=== PATIENT | female | born 1935 | race Caucasian/White ===

== ENCOUNTER 2020-01-09 10:02 | Outpatient (CLI) | payer MEDICARE, SELFPAY ==
[2020-01-09 10:32] LABS: Hematocrit 39.6 % (37.0-47.0); Hemoglobin 13.7 g/dL (12.0-15.0); Mean Corpuscular HGB Conc 34.6 g/dl (32-36); Mean Corpuscular Hemoglobin 30.8 pg (26-34); Mean Platelet Volume 10.1 fl (7.4-10.4); Platelet Count Result 218 k/mm3 (150-375); Red Blood Count 4.45 M/mm3 (4.2-5.4); Red Cell Distribution Width 12.6 % (11.5-14.5); White Blood Count 6.3 K/mm3 (4.5-10.0)
[2020-01-09 11:01] LABS: Alanine Aminotransferase 24 U/L (4-35); Albumin Level 4.4 g/dL (3.5-5.1); Alkaline Phosphatase 81 U/L (38-126); Aspartate Amino Transferase 36 U/L (14-36); Bilirubin,Total 0.6 mg/dL (0.2-1.3); Blood Urea Nitrogen 15 mg/dL (7-17); Calcium 9.4 mg/dL (8.4-10.2); Carbon Dioxide 31 mmol/L (22-30); Chloride 100 mmol/L (98-107); Cholesterol 183 mg/dL (0-200); Estimated Glomerular Filt Rate > 60; Glucose 100 mg/dL (65-105); HDL Direct 60 mg/dL; LDL Cholesterol Direct 82 mg/dL; Potassium 4.2 mmol/L (3.4-5.0); Sodium 136 mmol/L (137-145); Triglycerides 173 mg/dL (<150)
== END 2020-01-09 10:03 | disposition home or self-care (01) ==
PROVIDERS: PCP Family Medicine; Visit Provider Nurse Practitioner Family
DX: I10 Essential (primary) hypertension (principal); F41.9 Anxiety disorder, unspecified; Z13.29 Encounter for screening for other suspected endocrine disorder
CPT/HCPCS: 36415; 80053; 80061; 84443; 85027

== ENCOUNTER 2020-01-22 00:21 | Outpatient (CLI) | payer MEDICARE, SELFPAY ==
[2020-01-22 18:39] LABS: SARS-CoV-2 RNA PCR Negative
== END 2020-01-22 00:22 | disposition home or self-care (01) ==
LOC: ANHCOVIDDT 00:22
PROVIDERS: PCP Family Medicine; Visit Provider Internal Medicine Gastroenterology
DX: Z01.818 Encounter for other preprocedural examination (principal); Z11.59 Encounter for screening for other viral diseases
CPT/HCPCS: 87635; C9803; U0003

== ENCOUNTER 2020-01-24 00:40 | Day surgery (SDC) | payer MEDICARE, SELFPAY ==
[2020-01-17 14:25] VITALS: BMI 26.2
[2020-01-24 09:55] VITALS: BP 149/85; PULSE 78; RESP 16; TEMP 36.5; O2SAT 99
[2020-01-24] MEDS: LACTATED RINGERS 1,000 ML 150 ML IV CONT (10:05)
--- NOTE | 2020-01-24 10:20 | P.PNAN_ITS ---
Anes - Initial Pre Proc Eval Procedure: Operation Date: 01/24/20 10:00 Proposed Procedures p Colonoscopy - Guanakito Benites DO Date/Time: 01/24/20 10:20 Surgeon: Guanakito Benites DO Pre Op Diagnosis: Ulcerative Colitis Patient Data Age: 84 Gender: F Height: 5 ft 4.5 in Weight: 68.5 kg Last Vital Signs Temp 97.7 F 01/24/20 09:55 Pulse 78 01/24/20 09:55 Resp 16 01/24/20 09:55 BP 149/85 H 01/24/20 09:55 Pulse Ox 99 01/24/20 09:55 Allergies Allergy/AdvReac Type Severity Reaction Status Date / Time clindamycin Allergy Unknown Unknown Verified 01/24/20 09:54 hydrochlorothiazide Allergy Unknown Unknown Verified 01/24/20 09:54 lisinopril Allergy Unknown Unknown Verified 01/24/20 09:54 Penicillins Allergy Unknown Unknown Verified 01/24/20 09:54 Sulfa (Sulfonamide Allergy Unknown Unknown Verified 01/24/20 09:54 Antibiotics) Home Medications Medication Instructions Recorded Confirmed Type furosemide 20 mg tablet 10 mg PO QAM tablet 07/30/19 01/24/20 History mesalamine 800 mg tablet,delayed 1,600 mg PO TID 07/30/19 01/24/20 History release metoprolol succinate 100 mg 100 mg PO DAILY 07/30/19 01/24/20 History tablet,extended release 24 hr omeprazole 40 mg capsule,delayed 40 mg PO DAILY 07/30/19 01/24/20 History release vedolizumab 300 mg intravenous 300 mg IVPB ONCE 07/30/19 01/24/20 History solution atorvastatin 20 mg tablet 20 mg PO DAILY #90 tablet 10/15/19 01/24/20 Rx alprazolam 0.25 mg tablet 0.25 mg PO BID PRN #60 tablet 01/03/20 01/24/20 Rx losartan 100 mg tablet 100 mg PO DAILY #90 tablet 01/07/20 01/24/20 Rx Culturelle 1 cap PO DAILY 01/17/20 01/24/20 History PNV,calcium 57-pcsy-arfoz acid 1 tablet PO DAILY 01/17/20 01/24/20 History [ Vitamin Plus Low Iron] loperamide [Imodium A-D] 2 mg PO Q4H PRN 01/17/20 01/24/20 History simethicone [Gas Relief Extra 125 mg PO DAILY PRN 01/17/20 01/24/20 History Strength] blood sugar diagnostic #10 each 01/23/20 01/24/20 Rx lancets #50 each 01/23/20 01/24/20 Rx Patient hx anesthesia problems: none Family hx anesthesia problems: none [facility], [facility] Past Medical History Medical History (Updated 01/24/20 @ 10:20 by Gurinder Pascual MD) Hyperlipidemia Hypertension Social History Social History Smoking status: Former smoker Smoking end date: 08/22/71 Alcohol intake: current Anes - Eval Final PreProcedure Day of Procedure 01/24/20 10:20 Patient weight: normal Heart: regular rate and rhythm Lungs: clear to auscultation Airway: Mallampati scale class II Neurological: alert and oriented Last oral intake: >/= 8 hours ASA classification: II Emergent: no Anesthetic plan: proceed Anesthesia type and monitoring: general and standard monitoring Informed Consent: The patient's anesthetic plan and its attendant risks and benefits were discussed with the patient/family/POA. Questions were solicited and answers provided to the satisfaction of the patient/family/POA.
--- NOTE | 2020-01-24 10:42 | PM.IMHP ---
H&P: HPI History of Present Illness Chief complaint: Ulcerative Colitis Narrative: Reason for visit colonoscopy. Impression: Your very pleasant lady with a history of ulcerative colitis. She is here for screening and surveillance. Previously she has had evidence of indeterminate / low-grade dysplasia. HTN. Diabetes mellitus. HLD. GERD. Osteoarthritis. Recommendation: Colonoscopy. History: This very pleasant lady has a history ulcerative colitis. Previously she has had active inflammation indeterminate for dysplasia. She did have episodes of low-grade dysplasia in the past. She is here for follow-up colonoscopy for surveillance. She does have a history of occasional diarrhea. This controlled with Imodium. 14 point review systems negative except for that mentioned above. General: very pleasant patient in no acute distress. HEENT: Head was normocephalic sclerae is clear mouth without masses neck was supple. Heart: Rate rhythm regular without S3 or S4. Lungs: CTA. Abdomen: Soft with no guarding or rigidity. Bowel sounds were active. Neurologic: Cranial nerves 2 through 12 intact. No focal defects. No clonus. Musculoskeletal system: Revealed no joint tenderness or swelling no muscle atrophy. Extremities: Reveal no significant edema. Skin: Warm and dry with normal turgor. Mental status: intact. Patient is alert and oriented. Patient has had multiple surgeries. REPLACED BY [facility] Past Medical History Medical History (Updated 01/24/20 @ 10:42 by Guanakito Benites DO) Diabetes DJD (degenerative joint disease) GERD (gastroesophageal reflux disease) Hyperlipidemia Hypertension Ulcerative colitis Surgical History Surgical History (Updated 01/24/20 @ 10:42 by Guanakito Benites DO) H/O colonoscopy Social History Social History Smoking status: Former smoker Smoking end date: 08/22/71 Alcohol intake: current Meds Home Medications and Allergies Home Medications Medication Instructions Recorded Confirmed Type furosemide 20 mg tablet 10 mg PO QAM tablet 07/30/19 01/24/20 History mesalamine 800 mg tablet,delayed 1,600 mg PO TID 07/30/19 01/24/20 History release metoprolol succinate 100 mg 100 mg PO DAILY 07/30/19 01/24/20 History tablet,extended release 24 hr omeprazole 40 mg capsule,delayed 40 mg PO DAILY 07/30/19 01/24/20 History release vedolizumab 300 mg intravenous 300 mg IVPB ONCE 07/30/19 01/24/20 History solution atorvastatin 20 mg tablet 20 mg PO DAILY #90 tablet 10/15/19 01/24/20 Rx alprazolam 0.25 mg tablet 0.25 mg PO BID PRN #60 tablet 01/03/20 01/24/20 Rx losartan 100 mg tablet 100 mg PO DAILY #90 tablet 01/07/20 01/24/20 Rx Culturelle 1 cap PO DAILY 01/17/20 01/24/20 History PNV,calcium 24-uiub-tcmyt acid 1 tablet PO DAILY 01/17/20 01/24/20 History [ Vitamin Plus Low Iron] loperamide [Imodium A-D] 2 mg PO Q4H PRN 01/17/20 01/24/20 History simethicone [Gas Relief Extra 125 mg PO DAILY PRN 01/17/20 01/24/20 History Strength] blood sugar diagnostic #10 each 01/23/20 01/24/20 Rx lancets #50 each 01/23/20 01/24/20 Rx Allergies Allergy/AdvReac Type Severity Reaction Status Date / Time clindamycin Allergy Unknown Unknown Verified 01/24/20 09:54 hydrochlorothiazide Allergy Unknown Unknown Verified 01/24/20 09:54 lisinopril Allergy Unknown Unknown Verified 01/24/20 09:54 Penicillins Allergy Unknown Unknown Verified 01/24/20 09:54 Sulfa (Sulfonamide Allergy Unknown Unknown Verified 01/24/20 09:54 Antibiotics) Vital Signs Vital Signs - 24 hr 01/24/20 09:55 Temperature 36.5 C Pulse Rate 78 Respiratory Rate 16 Blood Pressure 149/85 H Pulse Oximetry 99
[2020-01-24 11:25] VITALS: BP 88/55; PULSE 65; RESP 14; O2SAT 95
[2020-01-24 11:35] VITALS: BP 108/61; PULSE 69; RESP 17; O2SAT 96
[2020-01-24 11:45] VITALS: BP 118/74; PULSE 62; RESP 16; O2SAT 99
== END 2020-01-24 11:55 | disposition home or self-care (01) ==
PROVIDERS: PCP Family Medicine; Visit Provider Internal Medicine Gastroenterology
PROC: 0DJD8ZZ Inspection of Lower Intestinal Tract, Via Natural or Artificial Opening Endoscopic (ICD-10-PCS; CPT 45378; principal; 2020-01-24 10:00)
DX: Z12.11 Encounter for screening for malignant neoplasm of colon (principal); K51.90 Ulcerative colitis, unspecified, without complications; I10 Essential (primary) hypertension; E78.5 Hyperlipidemia, unspecified; E11.9 Type 2 diabetes mellitus without complications; K21.9 Gastro-esophageal reflux disease without esophagitis; M19.90 Unspecified osteoarthritis, unspecified site; Z87.891 Personal history of nicotine dependence
CPT/HCPCS: G0105; 87635; 88305; C9803; J2704; J7120; U0003

== ENCOUNTER 2020-01-24 20:47 | Observation (INO) | payer MEDICARE, SELFPAY ==
--- NOTE | ~2020-01-24 | CT_ITS ---
EXAMINATION: CT abdomen pelvis w con DATE: 01/24/2020 22:17 INDICATION: Abdominal pain, nausea and diarrhea post colonoscopy. TECHNIQUE: Computed tomography (CT) of the abdomen and pelvis was performed with 100 mL Omnipaque-350 intravenous contrast. Automated exposure control and iterative reconstruction technique were employe d. The dose-length product was 419.04 mGy-cm. COMPARISON: None FINDINGS: Small fat-containing Bochdalek hernia at the posterior medial right hemithorax. Mild dependent atelec tasis in the bilateral lower lobes. Heart size is normal. Atherosclerotic coronary artery Calcination . No pericardial or pleural effusion. Moderate-sized sliding-type hiatal hernia. There are few low-at tenuation cysts in the left and right hepatic lobes. Mild intra and extra hepatic biliary ductal dila tion likely related to prior cholecystectomy with no visualized gallbladder. Spleen, pancreas, bilate ral adrenal glands are normal. 1.5 cm cyst at the lower pole of the left kidney. Small region of lex ical scarring at the lower pole of the right kidney. Colonic wall thickening, severe in the transvers e colon and decreasing severity in the descending and sigmoid colon consistent with colitis. No bowel obstruction. Normal appendix. Bladder is normal. The uterus is not identified and has likely been nash rgically resected. Moderate-sized fat-containing umbilical hernia. No free intraperitoneal gas or flu id. No pathologically enlarged abdominal or pelvic lymphadenopathy. There is calcified atherosclerosi s of the aorta and many of the other arteries. Severe lumbar spondylosis. IMPRESSION: 1. Chronic wall thickening in the mid to distal colon most severe at the transverse colon consistent with provided history of ulcerative colitis. 2. Moderate-sized hiatal hernia. 3. Moderate-sized fat-containing umbilical hernia. Reviewed, dictated and finalized at location A. IMPRESSION: 1. Chronic wall thickening in the mid to distal colon most severe at the transv erse colon consistent with provided history of ulcerative colitis. 2. Moderate-sized hiatal hernia. 3. Moderate-sized fat-containing umbilical hernia.
--- NOTE | ~2020-01-24 | XR_ITS ---
EXAMINATION: XR chest 1V portable DATE: 01/24/2020 21:38 INDICATION: Fever and loose stools. TECHNIQUE: frontal view of the chest was obtained. COMPARISON: Chest radiograph dated 01/12/2019 FINDINGS: The lungs remain clear with no focal airspace opacities, pulmonary edema, pleural effusion or pneumot horax. Air-fluid level within a moderate-sized hiatal hernia. Arch size is normal. Bilateral distal c lavicle resections and acromioplasties. Multiple suture anchors at the right humeral head likely rela jamey to prior rotator cuff repair. IMPRESSION: 1. No acute cardiopulmonary disease. 2. Moderate sized hiatal hernia. Reviewed, dictated and finalized at location A.
[2020-01-24 20:49] VITALS: BP 193/94; PULSE 120; RESP 18; TEMP 39.1; O2SAT 100
--- NOTE | 2020-01-24 21:01 | ECG_ITS ---
Measurements Intervals [place] Rate: 109 P: 21 OK: 164 QRS: -30 QRSD: 84 T: 31 QT: 311 QTc: 420 Interpretive Statements SINUS TACHYCARDIA POSSIBLE LEFT ATRIAL ENLARGEMENT INCOMPLETE RIGHT BUNDLE BRANCH BLOCK DELAYED PRECORDIAL R/S TRANSITION BASELINE ARTIFACT- I, III, AVR, AVL ABNORMAL ECG Electronically Signed On 01-25-2020 7:03:14 CDT by Rubens Arriaga D.O.
--- NOTE | 2020-01-24 21:17 | ED.FEVER ---
HPI - Fever General Chief Complaint: Fever Stated Complaint: fever, nausea, diarrhea Time Seen by Provider: 01/24/20 20:48 Source: RN notes reviewed History of Present Illness HPI Narrative: Patient presents emergency department from home for fever. Patient states she had a colonoscopy this morning by Dr. Sigala. States she had returned home and began to feel generalized malaise. She states she had noted increased thirst as well as a fever and diarrhea. Patient states she has mild abdominal achiness she denies any chest pain shortness of breath cough or any other symptoms at this time states she is taken no Tylenol at home Related Data Home Medications Medication Instructions Recorded Confirmed furosemide 20 mg tablet 10 mg PO QAM tablet 07/30/19 01/24/20 mesalamine 800 mg tablet,delayed 1,600 mg PO TID 07/30/19 01/24/20 release metoprolol succinate 100 mg 100 mg PO DAILY 07/30/19 01/24/20 tablet,extended release 24 hr omeprazole 40 mg capsule,delayed 40 mg PO DAILY 07/30/19 01/24/20 release vedolizumab 300 mg intravenous 300 mg IVPB ONCE 07/30/19 01/24/20 solution Culturelle 1 cap PO DAILY 01/17/20 01/24/20 PNV,calcium 89-cohh-grlja acid 1 tablet PO DAILY 01/17/20 01/24/20 [ Vitamin Plus Low Iron] loperamide [Imodium A-D] 2 mg PO Q4H PRN 01/17/20 01/24/20 simethicone [Gas Relief Extra 125 mg PO DAILY PRN 01/17/20 01/24/20 Strength] Allergies Allergy/AdvReac Type Severity Reaction Status Date / Time clindamycin Allergy Unknown Unknown Verified 01/24/20 09:54 hydrochlorothiazide Allergy Unknown Unknown Verified 01/24/20 09:54 lisinopril Allergy Unknown Unknown Verified 01/24/20 09:54 Penicillins Allergy Unknown Unknown Verified 01/24/20 09:54 Sulfa (Sulfonamide Allergy Unknown Unknown Verified 01/24/20 09:54 Antibiotics) Review of Systems Review of Systems: Narrative: Gen.: Reports fever Eyes: Denies eye pain or visual change ENT: Denies congestion Respiratory: Denies shortness of breath or cough CV: Denies chest pain or palpitations GI: Reports mild abdominal pain denies vomiting reports diarrhea denies burning, urgency, frequency or hematuria Musculoskeletal: Denies back pain or muscle pain Neuro: Denies numbness, tingling, weakness or focal weakness Skin: Denies rash Except as documented, all other systems reviewed and negative [facility] Past Medical History Medical History Diabetes DJD (degenerative joint disease) GERD (gastroesophageal reflux disease) Hyperlipidemia Hypertension Ulcerative colitis Surgical History Surgical History H/O colonoscopy Family History Family History Sibling Hypertension Family history of elevated blood lipids Family history of diabetes mellitus in first degree relative Mother Family history of Alzheimer's disease Father Family history of heart disease in male family member before age 55 Acute myocardial infarction Other Diabetes mellitus Family history of cardiovascular disease Family history of cataracts Family history of coronary artery disease Family history of glaucoma Family history of osteoarthritis Social History Social History Smoking status: Former smoker Smoking end date: 08/22/71 Alcohol intake: current Gender identity (if verbalized by the patient): Female Exam Narrative: Exam Narrative: APPEARANCE: No acute distress, nontoxic, resting in bed EYES: EOMI HEENT: Normocephalic, atraumatic, OMM RESPIRATORY: No respiratory distress Clear to auscultation bilaterally with no rhonchi wheezing or rales. CARDIOVASCULAR: Regular rate and rhythm without murmurs rubs or gallops. ABDOMINAL: Soft, nondistended, mild diffuse tenderness palpation no rebound or guarding MUSCULOSKELETAl: Moves all extremities. No
[2020-01-24] MEDS: SODIUM CHLORIDE 0.9% IV 1,000 ML 999 ML IV CONT ×2 (21:21→21:38)
[2020-01-24 21:22] LABS: Basophils Percent Auto 0.2 % (0.2-1.2); Eosinophils Percent Auto 0.1 % (0-4.4); Hematocrit 46.4 % (37.0-47.0); Hemoglobin 16.3 g/dL (12.0-15.0); Immature Granulocyte Absolute 0.08 K/mm3 (0.00-0.031); Immature Granulocyte Percent A 0.5 % (0-0.5); Lymphocytes Absolute Auto 1.73 K/mm3 (0.9-3.2); Lymphocytes Percent Auto 9.8 % (18.3-44.2); Mean Corpuscular HGB Conc 35.1 g/dl (32-36); Mean Corpuscular Hemoglobin 31.3 pg (26-34); Mean Corpuscular Volume 89.1 fl (80-100); Mean Platelet Volume 10.6 fl (7.4-10.4); Monocytes Percent Auto 5.4 % (2.6-8.5); Neutrophils Absolute Auto 14.8 K/mm3 (1.3-6.7); Platelet Count Result 289 k/mm3 (150-375); Red Blood Count 5.21 M/mm3 (4.2-5.4); Red Cell Distribution Width 12.7 % (11.5-14.5); White Blood Count 17.7 K/mm3 (4.5-10.0)
[2020-01-24 21:28] VITALS: BP 179/96; PULSE 92; RESP 14; O2SAT 100
[2020-01-24 21:33] LABS: Lactic Acid Reflex 2.8 mmol/L (0.7-2.1)
[2020-01-24 21:34] LABS: Alanine Aminotransferase 27 U/L (4-35); Albumin Level 5.1 g/dL (3.5-5.1); Alkaline Phosphatase 108 U/L (38-126); Aspartate Amino Transferase 45 U/L (14-36); Bilirubin,Total 0.7 mg/dL (0.2-1.3); Blood Urea Nitrogen 17 mg/dL (7-17); Calcium 10.1 mg/dL (8.4-10.2); Carbon Dioxide 27 mmol/L (22-30); Chloride 98 mmol/L (98-107); Estimated Glomerular Filt Rate 53; Glucose 126 mg/dL (65-105); Potassium 3.8 mmol/L (3.4-5.0); Sodium 137 mmol/L (137-145)
[2020-01-24 21:35] LABS: INR 1.1; Prothrombin Time 13.5 Seconds (11.1-14.7)
[2020-01-24 21:37] LABS: Partial Thromboplastin Time 35.5 SECONDS (22.3-36.8)
[2020-01-24 21:50] VITALS: TEMP 37.7
[2020-01-24 22:41] LABS: Add Urine Microscopic? YES; Appearance Urine Clear (Clear); Bilirubin Urine Negative (Negative); Blood Urine 1+ (Negative); Color Urine Straw (Yellow); Glucose Urine UA Negative (Negative); Ketones Urine Negative (Negative); Leukocyte Esterase Ur Trace LEU/UL (Negative); Mucus Urine Rare /lpf; Nitrate Urine Negative (Negative); Protein Urine Negative (Negative); RBC Urine 0-2 /hpf (0-2); Specific Grav Ur 1.015 (1.001-1.035); Squamous Epithelial Cell Urine Rare /hpf (Few); Urobilinogen Urine Negative mg/dL (<2.0)
[2020-01-24 22:42] VITALS: BP 152/85; PULSE 92; RESP 19; TEMP 37.7; O2SAT 100
[2020-01-24 23:30] VITALS: BP 137/71; PULSE 88; RESP 16; O2SAT 100
[2020-01-24] MEDS: metroNIDAZOLE 500 MG/ISO 100ML 500 MG/100 ML BAG 100 MG IVPB (23:40)
--- NOTE | 2020-01-25 00:17 | PM.IMHP ---
H&P: HPI History of Present Illness Chief complaint: Postoperative fever, sepsis Narrative: This is a pleasant 84 year old female with known history of ulcerative colitis who just underwent a colonoscopy by Dr. Benites today and returned to the hospital with a complaint of fever and diarrhea. The patient describes having several loose mushy stools at home but denies any jordan red rectal bleeding. She also denies any significant abdominal pain or abdominal distention. She relates that she has had various colonoscopies and this is the first time that she has had these symptoms afterwards. She denies any nausea, vomiting, coughing, shortness of breath, sore throat, chest pain, headache, dysuria, hematuria, or other symptoms. The patient was recently tested for COVID-19 three days ago and was negative. She denies any sick contacts. The patient was evaluated in the ER tonight and found to be septic with fever, tachycardia and an elevated WBC. CT abd/pelvis was unremarkable for acute pathology and did not demonstrate any perforation. Dr. Benites has been consulted by ER provider and has asked that the patient be started on IV Zosyn and admitted to our hospitalist service for further care. No other complaints. Review of Systems Review of Systems: All systems reviewed & are unremarkable except as noted in HPI and below PMFSH Past Medical History Medical History Abdominal pain Diabetes DJD (degenerative joint disease) GERD (gastroesophageal reflux disease) Hyperlipidemia Hypertension Ulcerative colitis Surgical History Surgical History H/O colonoscopy Family History Family History Sibling Hypertension Family history of elevated blood lipids Family history of diabetes mellitus in first degree relative Mother Family history of Alzheimer's disease Father Family history of heart disease in male family member before age 55 Acute myocardial infarction Other Diabetes mellitus Family history of cardiovascular disease Family history of cataracts Family history of coronary artery disease Family history of glaucoma Family history of osteoarthritis Social History Social History Smoking status: Former smoker Tobacco type: cigarettes Smoking end date: 08/22/71 Alcohol intake: current Drinks per week: 1 Substance use: never Substance use type: does not use Gender identity (if verbalized by the patient): Female Spiritual care concerns: No Meds Home Medications and Allergies Home Medications Medication Instructions Recorded Confirmed Type furosemide 20 mg tablet 10 mg PO QAM tablet 07/30/19 01/25/20 History mesalamine 800 mg tablet,delayed 1,600 mg PO TID 07/30/19 01/25/20 History release metoprolol succinate 100 mg 100 mg PO HS 07/30/19 01/25/20 History tablet,extended release 24 hr omeprazole 40 mg capsule,delayed 40 mg PO DAILY 07/30/19 01/25/20 History release vedolizumab 300 mg intravenous 300 mg IVPB ONCE 07/30/19 01/25/20 History solution atorvastatin 20 mg tablet 20 mg PO DAILY #90 tablet 10/15/19 01/25/20 Rx alprazolam 0.25 mg tablet 0.25 mg PO BID PRN #60 tablet 01/03/20 01/25/20 Rx losartan 100 mg tablet 100 mg PO DAILY #90 tablet 01/07/20 01/25/20 Rx Culturelle 1 cap PO DAILY 01/17/20 01/25/20 History Vitamin Plus Low Iron 1 tablet PO DAILY 01/17/20 01/25/20 History loperamide [Imodium A-D] 2 mg PO Q4H PRN 01/17/20 01/25/20 History simethicone [Gas Relief Extra 125 mg PO DAILY PRN 01/17/20 01/25/20 History Strength] blood sugar diagnostic #10 each 01/23/20 01/25/20 Rx lancets #50 each 01/23/20 01/25/20 Rx Benefiber Clear SF (dextrin) 2 tbsp PO QAM 01/25/20 01/25/20 History levofloxacin [Levaquin] 750 mg PO Q48H #3 tablet 01/26/20 Rx metronidazole [Fl
[2020-01-25 00:20] LABS: Reflex Lactic Acid Yes or No Add Lactic
[2020-01-25 00:31] VITALS: BP 139/81; PULSE 86; RESP 19; TEMP 37.2; O2SAT 98
[2020-01-25 00:41] VITALS: BP 139/81; PULSE 86; RESP 19; TEMP 37.6; O2SAT 98
[2020-01-25 00:43] LABS: Lactic Acid 0.8 mmol/L (0.7-2.1)
--- NOTE | 2020-01-25 00:58 | ADMGEN ---
This patient, Ivanna Mcfarland, was admitted to Medical Room 244-. Patient/family oriented to hospital policies and general routines including ID bracelet, bed and alarms, visiting hours, pain management, procedures, bathroom and other care routines, personal items, smoking policy, room service/diet, and visiting hours. Valuables list has been completed. Information on how to activate the Rapid Response Team has been discussed. Patient/Family are encouraged to report perceived risks to care and to ask questions if they do not understand what they are told or what they should do.
[2020-01-25 01:20] VITALS: BP 165/84; PULSE 87; RESP 16; TEMP 37; O2SAT 100; BMI 26.5
[2020-01-25] MEDS: SODIUM CHLORIDE 0.9% IV 1,000 ML 125 ML IV CONT ×2 (01:45→11:51)
[2020-01-25] MEDS: LORAZEPAM INJ 2 MG/ML VIAL 0.5 MG IV PUSH (03:29)
[2020-01-25 05:09] LABS: Basophils Percent Auto 0.2 % (0.2-1.2); Eosinophils Percent Auto 0.1 % (0-4.4); Hematocrit 36.5 % (37.0-47.0); Hemoglobin 12.7 g/dL (12.0-15.0); Immature Granulocyte Absolute 0.09 K/mm3 (0.00-0.031); Immature Granulocyte Percent A 0.6 % (0-0.5); Lymphocytes Absolute Auto 1.53 K/mm3 (0.9-3.2); Lymphocytes Percent Auto 10.2 % (18.3-44.2); Mean Corpuscular HGB Conc 34.8 g/dl (32-36); Mean Corpuscular Hemoglobin 31.1 pg (26-34); Mean Corpuscular Volume 89.2 fl (80-100); Mean Platelet Volume 10.5 fl (7.4-10.4); Monocytes Absolute Auto 0.8 K/mm3 (0.1-0.6); Monocytes Percent Auto 5.4 % (2.6-8.5); Neutrophils Absolute Auto 12.6 K/mm3 (1.3-6.7); Neutrophils Percent Auto 83.5 % (45.5-73.1); Platelet Count Result 191 k/mm3 (150-375); Red Blood Count 4.09 M/mm3 (4.2-5.4); Red Cell Distribution Width 12.9 % (11.5-14.5)
[2020-01-25 05:34] LABS: Alanine Aminotransferase 19 U/L (4-35); Albumin Level 3.5 g/dL (3.5-5.1); Alkaline Phosphatase 77 U/L (38-126); Aspartate Amino Transferase 31 U/L (14-36); Bilirubin,Total 0.5 mg/dL (0.2-1.3); Blood Urea Nitrogen 11 mg/dL (7-17); Carbon Dioxide 24 mmol/L (22-30); Chloride 106 mmol/L (98-107); Estimated CRCL calculation 42 ml/min; Estimated Glomerular Filt Rate > 60; Glucose 102 mg/dL (65-105); Potassium 3.1 mmol/L (3.4-5.0); Sodium 137 mmol/L (137-145)
[2020-01-25] MEDS: metroNIDAZOLE 500 MG/ISO 100ML 500 MG/100 ML BAG 100 MG IVPB ×4 (05:50→23:21)
[2020-01-25 05:53] VITALS: BP 131/70; PULSE 79; RESP 16; TEMP 36.8; O2SAT 99
[2020-01-25 06:05] LABS: Glucose Point of Care 102 (65-105)
[2020-01-25 07:38] LABS: Glucose Point of Care 117 (65-105)
[2020-01-25] MEDS: PANTOPRAZOLE SODIUM IV 40 MG VIAL IV PUSH (08:24)
--- NOTE | 2020-01-25 10:06 | P.PNIM_ITS ---
Progress Note: A&P Assessment and Plan (1) Postoperative fever: Code(s): R50.82 - Postprocedural fever Status: Acute Assessment and Plan: Mild fever of 99.7 overnight; no fevers since. Patient felling well thus far. Levaquin and Flagyl started in ER. Dr. Benites has been consulted from the ER and appreciate recommendations. * Await further rec from Dr. Benites * Continue IV antibiotics for now * Tylenol IV for fevers while on NPO status * monitor (2) Ulcerative colitis: Qualifiers: Ulcerative colitis location: other ulcerative colitis Digestive disease complication type: other complication Qualified Code(s): K51.818 - Other ulcerative colitis with other complication Code(s): K51.90 - Ulcerative colitis, unspecified, without complications Status: Chronic Assessment and Plan: Follows Dr. Benites who has been consulted; Colonoscopy performed yesterday with no evidence of active disease * NPO status for now * Await further rec from Dr. Benites * Continue IV antibiotics * Monitor (3) Sepsis: Qualifiers: Sepsis acute organ dysfunction status: without acute organ dysfunction Sepsis type: sepsis due to unspecified organism Qualified Code(s): A41.9 - Sepsis, unspecified organism Code(s): A41.9 - Sepsis, unspecified organism Status: Acute Assessment and Plan: With fever, tachycardia, leukocytosis, and lactic acidosis (resolved). Possible UC as source, although no active disease shown on colonoscopy. Vitals have improved; leukocytosis improved. * Monitor vitals * Continue IV antibiotics for now * Continue IVF at 75 mL/hr (4) Anxiety: Code(s): F41.9 - Anxiety disorder, unspecified Status: Chronic Assessment and Plan: No acute issues * PRN IV ativan for now (5) Hypertension: Qualifiers: Hypertension type: unspecified Qualified Code(s): I10 - Essential (primary) hypertension Code(s): I10 - Essential (primary) hypertension Status: Chronic Assessment and Plan: BP 130s sys * Resume home antihypertensives when possible. * PRN IV hypertensives as needed. (6) Hyperlipidemia: Qualifiers: Hyperlipidemia type: unspecified Qualified Code(s): E78.5 - Hyperlipidemia, unspecified Code(s): E78.5 - Hyperlipidemia, unspecified Status: Chronic Assessment and Plan: * Resume statin therapy when possible. (7) GERD (gastroesophageal reflux disease): Qualifiers: Esophagitis presence: esophagitis presence not specified Qualified Code(s): K21.9 - Gastro-esophageal reflux disease without esophagitis Code(s): K21.9 - Gastro-esophageal reflux disease without esophagitis Status: Chronic Assessment and Plan: No acute issues * Continue IV PPI therapy. (8) Diabetes: Qualifiers: Diabetes mellitus type: type 2 Diabetes mellitus fci insulin use: without buttermaker continuous churn use Diabetes mellitus complication status: without complication Qualified Code(s): E11.9 - Type 2 diabetes mellitus without complications Code(s): E11.9 - Type 2 diabetes mellitus without complications Status: Chronic Assessment and Plan: BGL low 100s today * Accuchecks, SSI Coverage, Hypoglycemia protocol. * Diabetic diet when
--- NOTE | 2020-01-25 10:06 | PM.IMPN ---
Progress Note: A&P Assessment and Plan (1) Postoperative fever: Code(s): R50.82 - Postprocedural fever Status: Acute Assessment and Plan: Mild fever of 99.7 overnight; no fevers since. Patient felling well thus far. Levaquin and Flagyl started in ER. Dr. Benites has been consulted from the ER and appreciate recommendations. Await further rec from Dr. Benites Continue IV antibiotics for now Tylenol IV for fevers while on NPO status monitor (2) Ulcerative colitis: Qualifiers: Ulcerative colitis location: other ulcerative colitis Digestive disease complication type: other complication Qualified Code(s): K51.818 - Other ulcerative colitis with other complication Code(s): K51.90 - Ulcerative colitis, unspecified, without complications Status: Chronic Assessment and Plan: Follows Dr. Benites who has been consulted; Colonoscopy performed yesterday with no evidence of active disease NPO status for now Await further rec from Dr. Benites Continue IV antibiotics Monitor (3) Sepsis: Qualifiers: Sepsis acute organ dysfunction status: without acute organ dysfunction Sepsis type: sepsis due to unspecified organism Qualified Code(s): A41.9 - Sepsis, unspecified organism Code(s): A41.9 - Sepsis, unspecified organism Status: Acute Assessment and Plan: With fever, tachycardia, leukocytosis, and lactic acidosis (resolved). Possible UC as source, although no active disease shown on colonoscopy. Vitals have improved; leukocytosis improved. Monitor vitals Continue IV antibiotics for now Continue IVF at 75 mL/hr (4) Anxiety: Code(s): F41.9 - Anxiety disorder, unspecified Status: Chronic Assessment and Plan: No acute issues PRN IV ativan for now (5) Hypertension: Qualifiers: Hypertension type: unspecified Qualified Code(s): I10 - Essential (primary) hypertension Code(s): I10 - Essential (primary) hypertension Status: Chronic Assessment and Plan: BP 130s sys Resume home antihypertensives when possible. PRN IV hypertensives as needed. (6) Hyperlipidemia: Qualifiers: Hyperlipidemia type: unspecified Qualified Code(s): E78.5 - Hyperlipidemia, unspecified Code(s): E78.5 - Hyperlipidemia, unspecified Status: Chronic Assessment and Plan: Resume statin therapy when possible. (7) GERD (gastroesophageal reflux disease): Qualifiers: Esophagitis presence: esophagitis presence not specified Qualified Code(s): K21.9 - Gastro-esophageal reflux disease without esophagitis Code(s): K21.9 - Gastro-esophageal reflux disease without esophagitis Status: Chronic Assessment and Plan: No acute issues Continue IV PPI therapy. (8) Diabetes: Qualifiers: Diabetes mellitus type: type 2 Diabetes mellitus fdc insulin use: without ad terminal makeup operator use Diabetes mellitus complication status: without complication Qualified Code(s): E11.9 - Type 2 diabetes mellitus without complications Code(s): E11.9 - Type 2 diabetes mellitus without complications Status: Chronic Assessment and Plan: BGL low 100s today Accuchecks, SSI Coverage, Hypoglycemia protocol. Diabetic diet when off NPO status Subjective Date/time seen: 01/25/20 10:06 Interval history: Patient is a 84 yo F with history of ulcerative colitis who just underwent a colonoscopy by Dr. Benites on 01/23 who is here for evaluation of post op fever and diarrhea. Patient states she is feeling better today; denies subjective fevers or any BMs since admission to the hospital. Her only c
[2020-01-25 11:24] LABS: Glucose Point of Care 124 (65-105)
[2020-01-25] MEDS: PHARMACIST COMMUNICATION ORDER 1 EACH XX (13:09)
--- NOTE | 2020-01-25 13:34 | WPDGICN ---
GI Consult Note Consult date/time: 01/25/20 13:34 Reason for consultation is history of ulcerative colitis and fever post colonoscopy. HPI: This very pleasant lady was seen in consultation at the request of the hospitalist with the patient's permission. The patient was examined and chart review. Here is a very pleasant lady with fever, diarrhea and elevated white count post colonoscopy. At this time at a loss to explain her fever and elevated white count. A little bit of diarrhea post colonoscopy is not unreasonable. History of ulcerative colitis. Colonoscopy 01/24/2020 revealed no active disease. GERD asymptomatic at this time. Diabetes mellitus. HTN. HLD. Degenerative joint disease. Recommendation: Continue Levaquin Flagyl. Will place on clear liquids. Recheck laboratory studies in the morning. If the patient has persistent fever and or elevated white count would consider repeating CT imaging and chest x-ray. History: This very pleasant lady's well known to myself. On 01/24/2020 the patient underwent a screening colonoscopy. Patient has a history of ulcerative colitis. She felt she has been under good control. Colonoscopy was unrewarding. Random biopsies were taken throughout. The patient is discharged home in satisfactory condition. During the evening after eating she developed significant urgency, cramping and diarrhea. She had about 4 5 times. She was feeling weak and presented to the emergency room. Emergency room she was noted to have an elevated temperature in white blood cell count. CT imaging revealed: IMPRESSION: 1. Chronic wall thickening in the mid to distal colon most severe at the transverse colon consistent with provided history of ulcerative colitis. 2. Moderate-sized hiatal hernia. 3. Moderate-sized fat-containing umbilical hernia. The patient was subsequently admitted to the hospital. Patient at this time denies any significant abdominal pain, constipation or diarrhea. She is passing flatus. She denies any hematochezia, melena or acholic stools. Nausea, vomiting, hematemesis, indigestion and heartburn or tonight. Today the white count is down slightly. There is a left shift. She has had no further diarrhea. Unfortunately cultures were not obtained. Fourteen point review of systems negative except for that mentioned above. Physical examination very pleasant lady in no acute distress. General: very pleasant patient in no acute distress. HEENT: Head was normocephalic sclerae is clear mouth without masses neck was supple. Heart: Rate rhythm regular without S3 or S4. Lungs: CTA. Abdomen: Soft with no guarding or rigidity. Bowel sounds were active. Neurologic: Cranial nerves 2 through 12 intact. No focal defects. No clonus. Musculoskeletal system: Revealed no joint tenderness or swelling no muscle atrophy. Extremities: Reveal no significant edema. Skin: Warm and dry with normal turgor. Mental status: intact. Patient is alert and oriented. Review of Systems Review of Systems: All systems reviewed & are unremarkable except as noted in HPI and below PMFSH Past Medical History Medical History Diabetes DJD (degenerative joint disease) GERD (gastroesophageal reflux disease) Hyperlipidemia Hypertension Ulcerative colitis Surgical History Surgical History H/O colonoscopy Family History Family History Sibling Hypertension Family history of elevated blood lipids Family history of diabetes mellitus in first degree relative Mother Family history of Alzheimer's disease Father Family history of heart disease in male family member before age 55 Acute myocardial infarction Other Diabetes mellitus Family history of cardiovascular disease Family history of cataracts Family history of coronary artery disease Family history
[2020-01-25 14:00] VITALS: BP 141/66; PULSE 75; RESP 16; TEMP 37.1; O2SAT 98
[2020-01-25 15:33] LABS: INR 1.2; Prothrombin Time 15.3 Seconds (11.1-14.7)
[2020-01-25 15:41] LABS: Alanine Aminotransferase 21 U/L (4-35); Albumin Level 4.2 g/dL (3.5-5.1); Alkaline Phosphatase 89 U/L (38-126); Aspartate Amino Transferase 33 U/L (14-36); Bilirubin,Total 0.9 mg/dL (0.2-1.3); Blood Urea Nitrogen 8 mg/dL (7-17); CRP 8.9 mg/dL (<1.0); Calcium 8.4 mg/dL (8.4-10.2); Carbon Dioxide 23 mmol/L (22-30); Chloride 104 mmol/L (98-107); Cholesterol 167 mg/dL (0-200); Estimated CRCL calculation 48 ml/min; Estimated Glomerular Filt Rate > 60; Glucose 97 mg/dL (65-105); HDL Direct 64 mg/dL; Potassium 3.4 mmol/L (3.4-5.0); Sodium 136 mmol/L (137-145); Triglycerides 91 mg/dL (<150)
[2020-01-25 15:50] LABS: LDL Cholesterol Direct 71 mg/dL
[2020-01-25 15:55] LABS: T4 Thyroxine 8.97 ug/dL (5.53-11.0)
[2020-01-25 16:23] LABS: Free T4 Free Thyroxine 1.11 ng/mL (0.78-2.19)
[2020-01-25 16:28] LABS: Glucose Point of Care 83 (65-105)
[2020-01-25] MEDS: POTASSIUM CHLORIDE 20 MEQ TABLET PO (17:30)
[2020-01-25] MEDS: SODIUM CHLORIDE 0.9% IV 1,000 ML 75 ML IV CONT (20:07)
[2020-01-25 20:23] LABS: Glucose Point of Care 80 (65-105)
[2020-01-25 22:02] VITALS: BP 139/66; PULSE 78; RESP 18; TEMP 37.7; O2SAT 100
[2020-01-25] MEDS: ALPRAZOLAM 0.25 MG TABLET PO (23:20)
[2020-01-26] MEDS: metroNIDAZOLE 500 MG/ISO 100ML 500 MG/100 ML BAG 100 MG IVPB ×2 (05:16→11:50)
[2020-01-26 05:40] LABS: Basophils Percent Auto 0.3 % (0.2-1.2); Eosinophils Absolute Auto 0.1 K/mm3 (0-0.3); Eosinophils Percent Auto 0.9 % (0-4.4); Hematocrit 34.6 % (37.0-47.0); Immature Granulocyte Absolute 0.03 K/mm3 (0.00-0.031); Immature Granulocyte Percent A 0.3 % (0-0.5); Lymphocytes Absolute Auto 1.69 K/mm3 (0.9-3.2); Lymphocytes Percent Auto 16.6 % (18.3-44.2); Mean Corpuscular HGB Conc 34.7 g/dl (32-36); Mean Corpuscular Hemoglobin 30.9 pg (26-34); Mean Corpuscular Volume 89.2 fl (80-100); Mean Platelet Volume 10.5 fl (7.4-10.4); Monocytes Absolute Auto 0.6 K/mm3 (0.1-0.6); Monocytes Percent Auto 5.5 % (2.6-8.5); Neutrophils Absolute Auto 7.8 K/mm3 (1.3-6.7); Neutrophils Percent Auto 76.4 % (45.5-73.1); Platelet Count Result 181 k/mm3 (150-375); Red Blood Count 3.88 M/mm3 (4.2-5.4); Red Cell Distribution Width 13.2 % (11.5-14.5); White Blood Count 10.2 K/mm3 (4.5-10.0)
[2020-01-26 05:59] LABS: Alanine Aminotransferase 17 U/L (4-35); Albumin Level 3.5 g/dL (3.5-5.1); Alkaline Phosphatase 75 U/L (38-126); Aspartate Amino Transferase 29 U/L (14-36); Bilirubin,Total 0.8 mg/dL (0.2-1.3); Blood Urea Nitrogen 5 mg/dL (7-17); CRP 12.4 mg/dL (<1.0); Calcium 8.1 mg/dL (8.4-10.2); Carbon Dioxide 25 mmol/L (22-30); Chloride 107 mmol/L (98-107); Estimated CRCL calculation 48 ml/min; Estimated Glomerular Filt Rate > 60; Glucose 93 mg/dL (65-105); Magnesium 1.5 mg/dL (1.6-2.3); Phosphorus 2.4 mg/dL (2.5-4.5); Potassium 3.4 mmol/L (3.4-5.0); Sodium 138 mmol/L (137-145)
[2020-01-26 06:00] VITALS: BP 146/70; PULSE 84; RESP 20; TEMP 36.7; O2SAT 97
[2020-01-26] MEDS: MAGNESIUM SULF 1 GM/D5W 100 ML 1 GM/100 ML BAG IVPB (07:01)
[2020-01-26] MEDS: POTASSIUM CHLORIDE 20 MEQ TABLET 40 MEQ PO (07:03)
[2020-01-26 07:46] LABS: Glucose Point of Care 98 (65-105)
--- NOTE | 2020-01-26 08:39 | PM.IMPN ---
Progress Note: A&P Assessment and Plan (1) Postoperative fever: Code(s): R50.82 - Postprocedural fever Status: Acute Assessment and Plan: Mild fever of 99.9 overnight; currently afebrile. Patient felling well again today. Levaquin and Flagyl started from the ER. Dr. Benites has been consulted from the ER and appreciate recommendations. Tolerating CLD thus far. Await further rec from Dr. Benites Continue IV antibiotics for now Tylenol prn for fevers monitor (2) Ulcerative colitis: Qualifiers: Ulcerative colitis location: other ulcerative colitis Digestive disease complication type: other complication Qualified Code(s): K51.818 - Other ulcerative colitis with other complication Code(s): K51.90 - Ulcerative colitis, unspecified, without complications Status: Chronic Assessment and Plan: Follows Dr. Benites who has been consulted; Colonoscopy performed on 01/23 with no evidence of active disease. Tolerating CLD thus far. Await further rec from Dr. Benites Continue IV antibiotics for now Monitor (3) Sepsis: Qualifiers: Sepsis acute organ dysfunction status: without acute organ dysfunction Sepsis type: sepsis due to unspecified organism Qualified Code(s): A41.9 - Sepsis, unspecified organism Code(s): A41.9 - Sepsis, unspecified organism Status: Acute Assessment and Plan: With fever, tachycardia (resolved), leukocytosis (improved to 10.2k today), and lactic acidosis (resolved). Possible UC as source, although no active disease shown on colonoscopy. Vitals have improved; leukocytosis improved. Mild fever overnight Monitor vitals Continue IV antibiotics for now Will d/c IV fluids as she is tolerating her diet (4) Anxiety: Code(s): F41.9 - Anxiety disorder, unspecified Status: Chronic Assessment and Plan: No acute issues Home Xanax (5) Hypertension: Qualifiers: Hypertension type: unspecified Qualified Code(s): I10 - Essential (primary) hypertension Code(s): I10 - Essential (primary) hypertension Status: Chronic Assessment and Plan: BP 140s sys Resume home antihypertensives today PRN IV hypertensives as needed. (6) Hyperlipidemia: Qualifiers: Hyperlipidemia type: unspecified Qualified Code(s): E78.5 - Hyperlipidemia, unspecified Code(s): E78.5 - Hyperlipidemia, unspecified Status: Chronic Assessment and Plan: Resume statin today (7) GERD (gastroesophageal reflux disease): Qualifiers: Esophagitis presence: esophagitis presence not specified Qualified Code(s): K21.9 - Gastro-esophageal reflux disease without esophagitis Code(s): K21.9 - Gastro-esophageal reflux disease without esophagitis Status: Chronic Assessment and Plan: No acute issues Will switch to PO PPI today (8) Diabetes: Qualifiers: Diabetes mellitus type: type 2 Diabetes mellitus maintenance supervisor mechanical insulin use: without maintenance supervisor mechanical use Diabetes mellitus complication status: without complication Qualified Code(s): E11.9 - Type 2 diabetes mellitus without complications Code(s): E11.9 - Type 2 diabetes mellitus without complications Status: Chronic Assessment and Plan: BGL low 90s today Accuchecks Qshift given well controlled BGL, SSI Coverage, Hypoglycemia protocol. Diabetic diet when off NPO status Subjective Date/time seen: 01/26/20 08:39 Interval history: Patient is a 84 yo F with history of ulcerative colitis who just underwent a colonoscopy by Dr. Benites on 01/23 who is here for evaluation of post op fever and diarrhea. Patient states she is
--- NOTE | 2020-01-26 09:00 | PC.NURSE ---
Discussed Asacol being nonformulary with patient. Patient states she will have her son bring the medication in today.
[2020-01-26] MEDS: FUROSEMIDE 10 MG TABLET PO (10:37)
[2020-01-26] MEDS: ATORVASTATIN 20 MG TABLET PO (10:37)
[2020-01-26] MEDS: LOSARTAN POTASSIUM 100 MG TABLET PO (10:38)
[2020-01-26] MEDS: PANTOPRAZOLE 40 MG TABLET PO (10:38)
--- NOTE | 2020-01-26 11:48 | PC.NURSE ---
Sliding scale insulin nonadministered due to frequency being changed to q shift.
--- NOTE | 2020-01-26 12:12 | WPDGIPROGNO ---
Progress Note: A&P Assessment and Plan (1) Postoperative fever: Code(s): R50.82 - Postprocedural fever Status: Acute Assessment and Plan: afebrile now, she is feeling great complete 5 more days of abx she can go home by GI standpoint and follow up with Dr Benites (2) Ulcerative colitis: Qualifiers: Ulcerative colitis location: other ulcerative colitis Digestive disease complication type: other complication Qualified Code(s): K51.818 - Other ulcerative colitis with other complication Code(s): K51.90 - Ulcerative colitis, unspecified, without complications Status: Chronic Assessment and Plan: biopsies showed colitis without dysplasia follow up with Dr Benites (3) Abdominal pain: Qualifiers: Abdominal location: unspecified location Qualified Code(s): R10.9 - Unspecified abdominal pain Code(s): R10.9 - Unspecified abdominal pain Status: Acute Assessment and Plan: resolved, ok to advance to soft diet (4) Diabetes: Qualifiers: Diabetes mellitus type: type 2 Diabetes mellitus small stock facer insulin use: without skilled nursing use Diabetes mellitus complication status: without complication Qualified Code(s): E11.9 - Type 2 diabetes mellitus without complications Code(s): E11.9 - Type 2 diabetes mellitus without complications Status: Chronic (5) Hypertension: Qualifiers: Hypertension type: unspecified Qualified Code(s): I10 - Essential (primary) hypertension Code(s): I10 - Essential (primary) hypertension Status: Chronic Subjective Date/time seen: 01/26/20 12:12 Interval history: she is doing much better today, no more pain, no blood in stools and tolerating diet. She is feeling like going home. Review of Systems Review of Systems: All systems reviewed & are unremarkable except as noted in HPI and below Exam Const: General: comfortable and no acute distress HENMT: General nose exam: Normal nares present Eyes: General: appearance normal, both eyes and all related structures Neck: Neck: no JVD Resp: Auscultation: clear to auscultation bilaterally Cardio: Rate: regular rate Rhythm: regular rhythm GI: Inspection: non-distended GI Palp: Yes Soft to palpation Skin: General skin exam: normal color Neuro: General: gait normal Speech: normal speech Extrem: General: normal to inspection Psych: Mental Status: mental status grossly normal Objective Data Vital Signs Vital Signs: Vital Signs - 24 hr 01/25/20 14:00 01/25/20 22:02 01/26/20 06:00 Temperature 98.8 F 99.9 F H 98.0 F Pulse Rate 75 78 84 Respiratory Rate 16 18 20 Blood Pressure 141/66 H 139/66 146/70 H Pulse Oximetry 98 100 97 Intake/Output Intake/Output: Intake & Output 01/23/20 01/24/20 01/25/20 01/26/20 23:59 23:59 23:59 23:59 Intake Total 2100 3680 760 Output Total 925 450 Balance 2100 2755 310 Meds/Results Medications: Active Medications Generic Name Dose Route Start Last Admin Trade Name Freq PRN Reason Stop Dose Admin Acetaminophen 650 mg 01/26/20 06:55 Tylenol Tablet PO Q6H PRN Mild Pain (1-3) or Fever Alprazolam 0.25 mg 01/25/20 22:30 01/25/20 23:20 Xanax PO 0.25 mg BID PRN Administration anxiety Atorvastatin Calcium 20 mg 01/26/20 09:00 01/26/20 10:37 Lipitor PO 20 mg DAILY RONY Administration Dextrose 12.5 gm 01/25/20 00:26 Dextrose 50% Syringe IV PUSH PRN PRN Hypoglycemia Protocol Furosemide 10 mg 01/26/20 09:00 01/26/20 10:37 Lasix Tablet PO 10 mg QAM RONY Administration Glucagon 1 mg 01/25/20 00:26 Glucagon For Inj IM PRN PRN Hypoglycemia Protocol Hydralazine HCl 10 mg 01/25/20 00:26 Apresoline Hcl Inj IV PUSH 01/27/20 07:00 Q8H PRN see comment Levofloxacin/Dextrose 750 mg in 150 mls @ 100 mls/hr 01/26/20 21:00 Levaquin 750 Mg/D5w 150 Ml IVPB Q48H RONY
--- NOTE | 2020-01-26 13:28 | PM.DS ---
DS: Admitting Diagnosis Admitting Diagnosis Admitting Diagnosis: Postprocedural fever, UC, sepsis DS: Discharge Diagnosis Discharge Diagnosis (1) Postoperative fever: Code(s): R50.82 - Postprocedural fever Status: Acute Assessment and Plan: Mild fever of 99.9 overnight; currently afebrile. Patient felling well again today. Levaquin and Flagyl started from the ER. Dr. Benites has been consulted from the ER and appreciate recommendations. Tolerating diet Okay for discharge from GI standpoint; will discharge today with antibiotics through 01/30 per GI recs Tylenol prn for fevers f/u with Dr. Benites per his recommendations (2) Ulcerative colitis: Qualifiers: Digestive disease complication type: other complication Ulcerative colitis location: other ulcerative colitis Qualified Code(s): K51.818 - Other ulcerative colitis with other complication Code(s): K51.90 - Ulcerative colitis, unspecified, without complications Status: Chronic Assessment and Plan: Follows Dr. Benites who has been consulted; Colonoscopy performed on 01/23 with no evidence of active disease. Tolerating diet. Okay for discharge from GI standpoint (3) Sepsis: Qualifiers: Sepsis acute organ dysfunction status: without acute organ dysfunction Sepsis type: sepsis due to unspecified organism Qualified Code(s): A41.9 - Sepsis, unspecified organism Code(s): A41.9 - Sepsis, unspecified organism Status: Acute Assessment and Plan: With fever, tachycardia (resolved), leukocytosis (improved to 10.2k today), and lactic acidosis (resolved). Possible UC as source, although no active disease shown on colonoscopy. Vitals have improved; leukocytosis improved. Mild fever overnight Monitor vitals Continue with PO antibiotics through 01/30 Will d/c IV fluids as she is tolerating her diet (4) Anxiety: Code(s): F41.9 - Anxiety disorder, unspecified Status: Chronic Assessment and Plan: No acute issues Home Xanax (5) Hypertension: Qualifiers: Hypertension type: unspecified Qualified Code(s): I10 - Essential (primary) hypertension Code(s): I10 - Essential (primary) hypertension Status: Chronic Assessment and Plan: BP 140s sys Resume home antihypertensives today PRN IV hypertensives as needed. (6) Hyperlipidemia: Qualifiers: Hyperlipidemia type: unspecified Qualified Code(s): E78.5 - Hyperlipidemia, unspecified Code(s): E78.5 - Hyperlipidemia, unspecified Status: Chronic Assessment and Plan: Resume statin today (7) GERD (gastroesophageal reflux disease): Qualifiers: Esophagitis presence: esophagitis presence not specified Qualified Code(s): K21.9 - Gastro-esophageal reflux disease without esophagitis Code(s): K21.9 - Gastro-esophageal reflux disease without esophagitis Status: Chronic Assessment and Plan: No acute issues Will switch to PO PPI today (8) Diabetes: Qualifiers: Diabetes mellitus complication status: without complication Diabetes mellitus intermediate teacher insulin use: without intermediate teacher use Diabetes mellitus type: type 2 Qualified Code(s): E11.9 - Type 2 diabetes mellitus without complications Code(s): E11.9 - Type 2 diabetes mellitus without complications Status: Chronic Assessment and Plan: BGL low 90s today Accuchecks Qshift given well controlled BGL, SSI Coverage, Hypoglycemia protocol. Diabetic diet when off NPO status DS: Summary Hospital Course Reason for hospitalization: Post op fever, UC Hospital Course: Patient is a 84 yo F with his
[2020-01-26 14:00] VITALS: BP 164/74; PULSE 110; RESP 16; TEMP 37.1; O2SAT 100
--- NOTE | 2020-01-26 15:00 | PC.NURSE ---
Patient states her right antecubital has a slight burning sensation. States she had an IV site there when she was here a week ago for a procedure. Assessed site. Small reddened area noted. Not warm to touch. No drainage or open areas noted. No hardness to area. Called Luciano MELVIN and reported patient's concerns. Per Luciano Rousseau, patient also reported this to him and he assessed the area when he examined patient a few hours ago. He states he instructed patient to wash the area gently with soap and water as she had some adhesive stuck to her skin when he assessed her and patient can use warm compresses if she would want to when she gets home. I instructed patient on this.
[2020-01-29 13:02] LABS: Vitamin D 1,25 (OH)2 Total 30 pg/mL (18-72); Vitamin D2 1,25 (OH)2 <8 pg/mL; Vitamin D3 1,25 (OH)2 30 pg/mL
== END 2020-01-26 15:20 | disposition home or self-care (01) ==
LOC: ANHED 23:43 → ANH2MED 01-25 00:26
PROVIDERS: Internal Medicine Gastroenterology; Physician Assistant; Admitting Provider Family Medicine; Emergency Provider Emergency Medicine; PCP Family Medicine; Visit Provider Internal Medicine
DX: A41.9 Sepsis, unspecified organism (principal); R50.82 Postprocedural fever; K51.818 Other ulcerative colitis with other complication; K21.9 Gastro-esophageal reflux disease without esophagitis; K44.9 Diaphragmatic hernia without obstruction or gangrene; K42.9 Umbilical hernia without obstruction or gangrene; F41.9 Anxiety disorder, unspecified; I10 Essential (primary) hypertension; E11.9 Type 2 diabetes mellitus without complications; E78.5 Hyperlipidemia, unspecified; M19.90 Unspecified osteoarthritis, unspecified site; Z79.899 Other long term (current) drug therapy; Z87.891 Personal history of nicotine dependence
CPT/HCPCS: 36415; 71045; 74177; 80048; 80053; 80061; 80076; 81001; 82652; 83605; 83735; 84100; 84436; 84439; 85025; 85610; 85730; 86140; 87040; 87045; 87046; 87427; 87635; 88305; 93005; 96361; 96365; 96366; 96367; 96375; 99285; A9270; C9113; C9803; G0378; J0131; J1956; J2060; J2704; J3475; J3480; J7030; J7120; Q9967; U0003

== ENCOUNTER 2020-01-31 17:29 | Outpatient (CLI) | payer MEDICARE, SELFPAY ==
[2020-01-31 17:50] LABS: Hematocrit 40.2 % (37.0-47.0); Mean Corpuscular HGB Conc 34.8 g/dl (32-36); Mean Corpuscular Hemoglobin 30.6 pg (26-34); Mean Platelet Volume 9.9 fl (7.4-10.4); Platelet Count Result 260 k/mm3 (150-375); Red Blood Count 4.57 M/mm3 (4.2-5.4); Red Cell Distribution Width 13.1 % (11.5-14.5); White Blood Count 9.9 K/mm3 (4.5-10.0)
[2020-01-31 18:00] LABS: Blood Urea Nitrogen 16 mg/dL (7-17); Calcium 9.5 mg/dL (8.4-10.2); Carbon Dioxide 30 mmol/L (22-30); Chloride 97 mmol/L (98-107); Estimated Glomerular Filt Rate 60; Glucose 111 mg/dL (65-105); Potassium 3.6 mmol/L (3.4-5.0); Sodium 134 mmol/L (137-145)
== END 2020-01-31 17:30 | disposition home or self-care (01) ==
LOC: ANHLAB 17:32
PROVIDERS: PCP Family Medicine; Visit Provider Physician Assistant
DX: K51.90 Ulcerative colitis, unspecified, without complications (principal); E87.6 Hypokalemia
CPT/HCPCS: 36415; 80048; 85027

== ENCOUNTER 2020-07-21 11:33 | Outpatient (CLI) | payer MEDICARE, SELFPAY ==
[2020-07-21 12:14] LABS: Basophils Percent Auto 0.4 % (0.2-1.2); Eosinophils Percent Auto 0.5 % (0-4.4); Hematocrit 39.7 % (37.0-47.0); Hemoglobin 13.6 g/dL (12.0-15.0); Immature Granulocyte Absolute 0.02 K/mm3 (0.00-0.031); Immature Granulocyte Percent A 0.3 % (0-0.5); Lymphocytes Absolute Auto 1.99 K/mm3 (0.9-3.2); Lymphocytes Percent Auto 25.1 % (18.3-44.2); Mean Corpuscular HGB Conc 34.3 g/dl (32-36); Mean Corpuscular Hemoglobin 31.5 pg (26-34); Mean Corpuscular Volume 91.9 fl (80-100); Mean Platelet Volume 10.4 fl (7.4-10.4); Monocytes Absolute Auto 0.7 K/mm3 (0.1-0.6); Monocytes Percent Auto 8.3 % (2.6-8.5); Neutrophils Absolute Auto 5.2 K/mm3 (1.3-6.7); Neutrophils Percent Auto 65.4 % (45.5-73.1); Platelet Count Result 213 k/mm3 (150-375); Red Blood Count 4.32 M/mm3 (4.2-5.4); Red Cell Distribution Width 12.8 % (11.5-14.5); White Blood Count 7.9 K/mm3 (4.5-10.0)
[2020-07-21 12:23] LABS: Hemoglobin A1C 5.6 % (<5.7)
[2020-07-21 12:28] LABS: Alanine Aminotransferase 25 U/L (4-35); Albumin Level 4.3 g/dL (3.5-5.1); Alkaline Phosphatase 83 U/L (38-126); Anion Gap 5 mmol/L (8-16); Aspartate Amino Transferase 37 U/L (14-36); Bilirubin,Total 0.7 mg/dL (0.2-1.3); Blood Urea Nitrogen 23 mg/dL (7-17); Calcium 9.9 mg/dL (8.4-10.2); Carbon Dioxide 33 mmol/L (22-30); Chloride 101 mmol/L (98-107); Cholesterol 193 mg/dL (0-200); Estimated Glomerular Filt Rate 53; Glucose 88 mg/dL (65-105); HDL Direct 68 mg/dL; Sodium 139 mmol/L (137-145); Triglycerides 135 mg/dL (<150)
[2020-07-21 12:38] LABS: LDL Cholesterol Direct 85 mg/dL; Potassium 3.9 mmol/L (3.4-5.0)
[2020-07-21 12:57] LABS: Vitamin D 25 Hydroxy 36.7 ng/mL
== END 2020-07-21 11:34 | disposition home or self-care (01) ==
LOC: ANHLAB 11:35
PROVIDERS: PCP Family Medicine; Visit Provider Nurse Practitioner Family
DX: E78.2 Mixed hyperlipidemia (principal); I10 Essential (primary) hypertension; Z13.29 Encounter for screening for other suspected endocrine disorder; E55.9 Vitamin D deficiency, unspecified; E11.9 Type 2 diabetes mellitus without complications
CPT/HCPCS: 36415; 80053; 80061; 82306; 83036; 84443; 85025

== ENCOUNTER 2020-07-30 09:38 | Outpatient (CLI) | payer MEDICARE, SELFPAY ==
[2020-07-30 10:22] LABS: Alanine Aminotransferase 27 U/L (4-35); Albumin Level 4.2 g/dL (3.5-5.1); Alkaline Phosphatase 74 U/L (38-126); Anion Gap 4 mmol/L (8-16); Aspartate Amino Transferase 38 U/L (14-36); Bilirubin,Total 0.7 mg/dL (0.2-1.3); Blood Urea Nitrogen 22 mg/dL (7-17); Calcium 9.5 mg/dL (8.4-10.2); Carbon Dioxide 35 mmol/L (22-30); Chloride 100 mmol/L (98-107); Estimated Glomerular Filt Rate 53; Glucose 104 mg/dL (65-105); Potassium 4.4 mmol/L (3.4-5.0); Sodium 139 mmol/L (137-145)
== END 2020-07-30 09:39 | disposition home or self-care (01) ==
PROVIDERS: PCP Family Medicine; Visit Provider Nurse Practitioner Family
DX: R74.01 Elevation of levels of liver transaminase levels (principal)
CPT/HCPCS: 36415; 80053

== ENCOUNTER 2020-08-04 12:03 | Outpatient (CLI) | payer MEDICARE, SELFPAY ==
--- NOTE | 2020-08-05 12:54 | ECHO_ITS ---
Patient Info Name: Ivanna Mcfarland Age: 84 years : 1935 Gender: Female Ht: 65 in Wt: 174 lbs BSA: 1.92 m2 HR: 76 bpm BP: 166 / 96 mmHg Technical Quality: Good Exam Date: 08/05/2020 2:17 PM Exam Location: [facility] Patient Status: Outpatient Admit Date: 08/04/2020 Staff Ordering Physician: Ramona Moe NP Water Project Manager: Ramiro Grullon RDCS, RT Attending Provider: Ramona Moe NP Referring Physician: Abhi RANDOLPH; Exam Type: CA echo doppler color flow Study Info Indications R94.31 - Abnormal electrocardiogram ECG EKG Complete two-dimensional, color flow and Doppler transthoracic echocardiogram is performed. Summary 1. Complete two-dimensional, color flow and Doppler transthoracic echocardiogram is performed. 2. Left ventricular chamber dimension is normal. 3. Left ventricular systolic function is normal, estimated at 60-65%. 4. There is mildly increased left ventricular wall thickness. 5. The left ventricular diastolic function is grade I diastolic dysfunction. 6. E/e' 9 is minimally elevated. 7. Global longitudinal strain is normal at -19.6%. 8. There is mild aortic valve sclerosis. 9. There is mild aortic valve regurgitation. 10. The mitral valve has moderately calcified annulus. 11. There is mild mitral valve regurgitation. 12. There is moderate tricuspid valve regurgitation. 13. Moderate pulmonary hypertension, estimated pulmonary arterial systolic pressure is 50 mmHg. Left Ventricle E/e' 9 is minimally elevated. Global longitudinal strain is normal at -19.6%. Left ventricular chamber dimension is normal. Left ventricular systolic function is normal, estimated at 60-65%. There is mildly increased left ventricular wall thickness. The left ventricular diastolic function is grade I diastolic dysfunction. Right Ventricle Right ventricular chamber dimension is normal. Right ventricular systolic function is normal. Left Atria Left atrial chamber dimension is normal. Right Atria Right atrial chamber dimension is normal. Aortic Valve The aortic valve is trileaflet. There is mild aortic valve sclerosis. There is no aortic valve stenosis. There is mild aortic valve regurgitation. Pulmonic Valve There is no pulmonic regurgitation. Mitral Valve The mitral valve has moderately calcified annulus. There is no mitral valve stenosis. There is mild mitral valve regurgitation. Tricuspid Valve There is moderate tricuspid valve regurgitation. Moderate pulmonary hypertension, estimated pulmonary arterial systolic pressure is 50 mmHg. Pericardium/Pleural There is no pericardial effusion. Inferior Vena Cava Normal inferior vena cava with >50% collapse upon inspiration consistent with normal right atrial pressure, 5 mmHg. Aorta The aortic root size at the sinus of Valsalva is normal. Left Ventricular Outflow Tract Name Value Normal LVOT 2D LVOT Diameter 2.0 cm LVOT Doppler LVOT Peak Gradient 5 mmHg LVOT Mean Gradient 3 mmHg LVOT VTI 28 cm LV
== END 2020-08-04 12:04 | disposition home or self-care (01) ==
LOC: ANHCARD 12:05
PROVIDERS: PCP Family Medicine; Visit Provider Nurse Practitioner Family
DX: R94.31 Abnormal electrocardiogram [ECG] [EKG] (principal); I08.3 Combined rheumatic disorders of mitral, aortic and tricuspid valves
CPT/HCPCS: 93306

== ENCOUNTER 2020-08-14 09:54 | Outpatient (CLI) | payer MEDICARE, SELFPAY ==
[2020-08-14 10:36] LABS: Alanine Aminotransferase 25 U/L (4-35); Albumin Level 4.2 g/dL (3.5-5.1); Alkaline Phosphatase 77 U/L (38-126); Anion Gap 5 mmol/L (8-16); Aspartate Amino Transferase 40 U/L (14-36); Bilirubin,Total 0.7 mg/dL (0.2-1.3); Blood Urea Nitrogen 22 mg/dL (7-17); Calcium 9.2 mg/dL (8.4-10.2); Carbon Dioxide 34 mmol/L (22-30); Chloride 97 mmol/L (98-107); Estimated Glomerular Filt Rate 60; Glucose 101 mg/dL (65-105); Potassium 4.1 mmol/L (3.4-5.0); Sodium 136 mmol/L (137-145)
== END 2020-08-14 09:55 | disposition home or self-care (01) ==
LOC: ANHLAB 09:56
PROVIDERS: PCP Family Medicine; Visit Provider Nurse Practitioner Family
DX: R74.01 Elevation of levels of liver transaminase levels (principal)
CPT/HCPCS: 36415; 80053

== ENCOUNTER 2020-11-19 09:38 | Outpatient (CLI) | payer MEDICARE, SELFPAY ==
[2020-11-19 10:39] LABS: Creatinine Urine 96.9 mg/dL
[2020-11-19 10:44] LABS: MALB Creatinine Ratio 16.8 mg/g (0-30); Microalbumin Urine Random 16.3 mg/L (0-16.7)
== END 2020-11-19 09:39 | disposition home or self-care (01) ==
PROVIDERS: PCP Family Medicine; Visit Provider Family Medicine
DX: E11.9 Type 2 diabetes mellitus without complications (principal)
CPT/HCPCS: 82043

== ENCOUNTER 2021-10-29 10:40 | Outpatient (CLI) | payer MEDICARE, SELFPAY ==
--- NOTE | ~2021-10-29 | MM_ITS ---
EXAMINATION: MM screening jacki BI w francheska HISTORY: Screening TECHNIQUE: Craniocaudal and mediolateral oblique 3-D tomosynthesis images were obtained and synthetic 2-D images were generated. CAD analysis was submitted and interpreted. COMPARISON: Comparison to multiple prior studies sequentially, with oldest reviewed study dated 10/2014. BREAST PARENCHYMAL COMPOSITION: There are scattered areas of fibroglandular density. FINDINGS: There is no evidence of suspicious mass, calcification, or architectural distortion to sugg est malignancy in either breast. There has been no suspicious interval change. IMPRESSION: 1. No mammographic evidence of malignancy. 2. Recommend routine screening mammography in one year. BI-RADS Category 1: Negative Reviewed, dictated and finalized at location A. LLOGRAPHIC TECHNICIAN
== END 2021-10-29 10:41 | disposition home or self-care (01) ==
LOC: ANHIMG 10:41
PROVIDERS: PCP Family Medicine; Visit Provider Family Medicine
DX: Z12.31 Encounter for screening mammogram for malignant neoplasm of breast (principal)
CPT/HCPCS: 77063; 77067

== ENCOUNTER 2022-06-10 18:29 | Emergency (ER) | payer MEDICARE, SELFPAY ==
--- NOTE | 2022-06-10 18:33 | ED.WOUNDLAC ---
HPI - Wound/Laceration General Chief Complaint: Skin/Abscess/Foreign Body Stated Complaint: Dog Bite Rt Arm and Rt Hip Time Seen by Provider: 06/10/22 18:50 Source: patient and RN notes reviewed Mode of arrival: ambulatory Limitations: no limitations History of Present Illness HPI narrative: 86-year-old female presents concern for a dog bite to her right arm and right hip. She reports the bite happened just prior to arrival to a dog was up-to-date on his vaccinations. Patient last had a tetanus shot in 2019. She denies decreased strength, sensation, range of motion distal to the wound. Extremity Location: Right: arm Related Data Home Medications Medication Instructions Recorded Confirmed mesalamine 800 mg tablet,delayed 1,600 mg PO TID 07/30/19 04/05/22 release (Asacol HD) omeprazole 40 mg capsule,delayed 40 mg PO DAILY 07/30/19 04/05/22 release Culturelle 1 cap PO DAILY 01/17/20 04/05/22 loperamide 2 mg tablet (Imodium 2 mg PO Q4H PRN Diarrhea 01/17/20 04/05/22 A-D) vitamin with calcium 1 tablet PO DAILY 01/17/20 04/05/22 no.72-iron 27 mg-folic acid 1 mg tablet ( Vitamins Plus Low Iron) simethicone 125 mg capsule (Gas 125 mg PO DAILY PRN Abdominal 01/17/20 04/05/22 Relief Extra Strength) Discomfort Benefiber Clear SF (dextrin) 2 tbsp PO QAM 01/25/20 04/05/22 magnesium 250 mg tablet 500 mg PO DAILY 11/30/21 04/05/22 donepezil 5 mg tablet 5 mg PO QHS 04/05/22 04/05/22 alprazolam 0.25 mg tablet (Xanax) 0.25 mg PO BID 06/10/22 06/10/22 Allergies Allergy/AdvReac Type Severity Reaction Status Date / Time amlodipine Allergy Mild Confusion Verified 06/10/22 18:56 clindamycin Allergy Unknown Unknown Verified 06/10/22 18:56 hydrochlorothiazide Allergy Unknown Unknown Verified 06/10/22 18:56 lisinopril Allergy Unknown Unknown Verified 06/10/22 18:56 Penicillins Allergy Unknown Unknown Verified 06/10/22 18:56 Sulfa (Sulfonamide Allergy Unknown Unknown Verified 06/10/22 18:56 Antibiotics) Review of Systems Review of Systems: CONSTITUTIONAL: Denies malaise, chills, sweats, or fever. SKIN: Reports skin tear on the right upper arm, abrasion on right hip MUSCULOSKELETAL: Denies muscle skeletal pain NEUROLOGIC: Denies numbness, weakness All systems reviewed & are unremarkable except as noted in HPI and below PMFSH Past Medical History Medical History (Updated 06/10/22 @ 19:11 by Stephanie Lopez NP) Abdominal pain BMI 25.0-25.9,adult BMI 26.0-26.9,adult BMI 27.0-27.9,adult Diabetes DJD (degenerative joint disease) GERD (gastroesophageal reflux disease) Hoarseness of voice Hyperlipidemia Hypertension Ulcerative colitis Surgical History Surgical History H/O colonoscopy Family History Family History Sibling Hypertension Family history of elevated blood lipids Family history of diabetes mellitus in first degree relative Carcinoma of colon Mother Family history of Alzheimer's disease Father Family history of heart disease in male family member before age 55 Acute myocardial infarction Other Diabetes mellitus Family history of cardiovascular disease Family history of cataracts Family history of coronary artery disease Family history of glaucoma Family history of osteoarthritis Social History Social History Smoking packs per day: 0.5 Smoking cigarettes per day: 10.0 Years smoked: 15 Smoking pack-years: 7.50 Smoking status: Former smoker Tobacco type: cigarettes Smoking end date: 08/22/71 Alcohol intake: current Drinks per week: 1 Substance use: never Substance use type: does not use Additional occupation/education comments: [facility] Gender identity (if verbalized by the patient): Female Spiritual care concerns: No Comme
[2022-06-10 18:40] VITALS: BP 167/80; PULSE 63; RESP 18; TEMP 36.9; O2SAT 100
== END 2022-06-10 19:16 | disposition home or self-care (01) ==
PROVIDERS: Emergency Provider Nurse Practitioner; PCP Family Medicine
DX: S41.111A Laceration without foreign body of right upper arm, initial encounter (principal); S71.011A Laceration without foreign body, right hip, initial encounter; W54.0XXA Bitten by dog, initial encounter; Z87.891 Personal history of nicotine dependence; I10 Essential (primary) hypertension; K21.9 Gastro-esophageal reflux disease without esophagitis; E78.5 Hyperlipidemia, unspecified; E11.9 Type 2 diabetes mellitus without complications
CPT/HCPCS: 99212; G0463

== ENCOUNTER 2023-03-14 06:46 | Outpatient (NON) | payer MEDICARE, SELFPAY | END 2023-03-14 06:47 | disposition home or self-care (01) | PROVIDERS: PCP Family Medicine; Visit Provider Nurse Practitioner | DX: C44.622 Squamous cell carcinoma of skin of right upper limb, including shoulder (principal) | CPT/HCPCS: 88305; 88331 ==

== ENCOUNTER 2023-06-13 07:00 | Outpatient (NON) | payer MEDICARE, SELFPAY | END 2023-06-13 07:01 | disposition home or self-care (01) | LOC: ANHLAB 06-15 15:22 | PROVIDERS: PCP Family Medicine; Visit Provider Nurse Practitioner | DX: B07.8 Other viral warts (principal) | CPT/HCPCS: 88305 ==